=== PATIENT | female | born 1945 | race Caucasian/White ===

== ENCOUNTER → 2018-03-26 | Outpatient (CLI) | payer OTHER ==
[~2018-03-26] MED LIST: REGADENOSON 0.4 MG/5 ML SYRINGE ONE
== END | disposition home or self-care (01) ==
LOC: CFH 07:31
PROVIDERS: ATTEND Internal Medicine Cardiovascular Disease
DX: I25.89 Other forms of chronic ischemic heart disease (principal); I48.0 Paroxysmal atrial fibrillation; I10 Essential (primary) hypertension
CPT/HCPCS: 78452; 93017; A9502; J2785

== ENCOUNTER 2018-08-22 09:48 | Outpatient (CLI) | payer MEDICARE | END 2018-08-22 23:59 | disposition home or self-care (01) | LOC: CFH 09:48 | PROVIDERS: ATTEND Internal Medicine | DX: E04.2 Nontoxic multinodular goiter (principal) | CPT/HCPCS: 71250 ==

== ENCOUNTER → 2018-09-26 | Outpatient (CLI) | payer MEDICARE | END | disposition home or self-care (01) | LOC: CFH 16:01 | PROVIDERS: ATTEND Nurse Practitioner Family | DX: N39.0 Urinary tract infection, site not specified (principal) | CPT/HCPCS: 76770 ==

== ENCOUNTER 2019-08-01 08:58 | Outpatient (CLI) | payer MEDICARE | END 2019-08-01 23:59 | disposition home or self-care (01) | LOC: CFH 08:58 | DX: Z12.31 Encounter for screening mammogram for malignant neoplasm of breast (principal) | CPT/HCPCS: 77063; 77067 ==

== ENCOUNTER → 2019-09-18 | Outpatient (CLI) | payer MEDICARE | END | disposition home or self-care (01) | LOC: CFH 13:46 | PROVIDERS: ATTEND Pain Medicine Interventional Pain Medicine | DX: M51.16 Intervertebral disc disorders with radiculopathy, lumbar region (principal); M48.061 Spinal stenosis, lumbar region without neurogenic claudication | CPT/HCPCS: 72120 ==

== ENCOUNTER 2019-10-10 11:54 | Outpatient (CLI) | payer MEDICARE ==
[2019-10-10] MEDS ORDERED: MIDAZOLAM 1 MG/ML, 5ML ONE (12:50)
[2019-10-10] MEDS ORDERED: NALOXONE 1 MG/ML, 2ML ONE (12:50)
[2019-10-10] MEDS ORDERED: FENTANYL PF 100 MCG/2ML ONE (12:50)
[2019-10-10] MEDS ORDERED: FLUMAZENIL 0.1 MG/1 ML, 5ML ONE (12:50)
== END 2019-10-10 23:59 | disposition home or self-care (01) ==
LOC: RAD 11:54
PROVIDERS: ATTEND Pain Medicine Interventional Pain Medicine
DX: M51.16 Intervertebral disc disorders with radiculopathy, lumbar region (principal); M48.061 Spinal stenosis, lumbar region without neurogenic claudication
CPT/HCPCS: 72148; 99156; 99157; J2250; J3010; J2310

== ENCOUNTER 2020-03-06 20:00 | Emergency (ER) | payer MEDICARE ==
[~2020-03-06] VITALS: Ht 160 cm; Wt 89.0 kg
--- NOTE | 2020-03-06 21:14 | NUR ---
ERP AT BEDSIDE.
[2020-03-06] MEDS ORDERED: high blood pressure (21:26)
[2020-03-06] MEDS ORDERED: stomach med (21:26)
[2020-03-06] MEDS ORDERED: METF500T17 PO (21:26)
[2020-03-06 21:28] VITALS: BP 128/49
== END 2020-03-06 21:49 | disposition home or self-care (01) ==
LOC: ED 20:30
DX: S92.355A Nondisplaced fracture of fifth metatarsal bone, left foot, initial encounter for closed fracture (principal); E11.9 Type 2 diabetes mellitus without complications; I48.91 Unspecified atrial fibrillation; I10 Essential (primary) hypertension; W18.30XA Fall on same level, unspecified, initial encounter; Y93.89 Activity, other specified; Y92.009 Unspecified place in unspecified non-institutional (private) residence as the place of occurrence of the external cause; Y99.8 Other external cause status
CPT/HCPCS: 99284

== ENCOUNTER 2020-08-13 07:47 | Emergency (ER) | payer MEDICARE ==
[~2020-08-13 07:47] MED LIST changes: +ACID1TAB7 PO; +BUPR100T11 PO; +CHOL10003 PO; +CHOL239. PO; +DIPH1TAB6 PO; +FLEC50TA25 PO; +FOLI0.8T2 PO; +GABA300C PO; +HYDR-3276 PO; +LOSA50TA14 PO; +MAGN400T36 PO; +METF500T17 PO; +METH2.5T PO; +NITROFURANTOIN PO; +OMEP20CA20 PO; +ONDA-89 PO; +POTA8CAP20 PO; -REGADENOSON 0.4 MG/5 ML SYRINGE ONE; +RIVA20TA PO; +SIMV20TA19 PO; +SIMV40TA20 PO; +VITA100C10 PO; +high blood pressure; +stomach med; +victoza
--- NOTE | 2020-08-13 08:02 | NUR ---
PATIENT ARRIVES TO ER IN WHEELCHAIR AND STATES LAST NIGHT BEGAN HAVING DIARREA, VOMITING, HTN; PATIENT HAS A HISTORY OF DIABETES AND HTN
--- NOTE | 2020-08-13 08:29 | NUR ---
PATIENT TAKEN TO BATHROOM AND CLEAN CATCH URINE OBTAINED.
[2020-08-13] MEDS ORDERED: SODIUM CHLORIDE 0.9% 1,000ML IVBOLUS ONE ×2 (08:30→09:30)
[2020-08-13] MEDS ORDERED: ONDANSETRON 2MG/ML, 2ML IVPush ONE (08:30)
[2020-08-13] MEDS ORDERED: SODIUM CHLORIDE FLUSH 10ML SYR IVF ONE (08:30)
[2020-08-13] MEDS ORDERED: FAMOTIDINE 20 MG/2 ML IVPush ONE (08:30)
[2020-08-13] MEDS ORDERED: ONDANSETRON 2MG/ML, 2ML ONE (08:32)
[2020-08-13] MEDS ORDERED: FAMOTIDINE 20 MG/2 ML ONE (08:34)
--- NOTE | 2020-08-13 08:37 | NUR ---
patient left for xray
[2020-08-13 08:39] LABS: MICROSCOPIC AUTO
[2020-08-13 08:40] LABS: BASOPHILS % (AUTO) 1 % (0-1); EOSINOPHILS % (AUTO) 2 % (1-7); LYMPHOCYTES % (AUTO) 23 % (22-44); MEAN CORPUSCULAR HEMOGLOBIN 32.1 pg (27.0-34.8); MEAN CORPUSCULAR HGB CONC 33.8 g/dL (32.4-35.8); MEAN PLATELET VOLUME 7.2 fL (7.4-10.4); MONOCYTES % (AUTO) 12 % (2-9); NEUTROPHILS % (AUTO) 63 % (42-75); PLATELET COUNT 207 x10^3/uL (130-400); RED BLOOD COUNT 4.45 x10^6/uL (3.82-5.3)
[2020-08-13 08:41] LABS: MD NO
[2020-08-13 08:50] LABS: ALANINE AMINOTRANSFERASE 23 U/L (12-78); ALBUMIN 3.6 g/dL (3.4-5.0); ANION GAP 3 mmol/L (5-15); CALCIUM 9.2 mg/dL (8.5-10.1); CHLORIDE 104 mmol/L (98-107); CREATININE 1.15 mg/dL (0.55-1.02)
[2020-08-13 08:53] LABS: ALKALINE PHOSPHATASE 66 U/L (45-117); BILIRUBIN,TOTAL 0.5 mg/dL (0.2-1.0); TOTAL PROTEIN 7.1 g/dL (6.4-8.2)
[2020-08-13] MEDS ORDERED: METOCLOPRAMIDE 5 MG/ML, 2ML ONE (09:29)
[2020-08-13] MEDS ORDERED: METOCLOPRAMIDE 5 MG/ML, 2ML IVPush ONE (09:30)
[2020-08-13 10:22] VITALS: BP 166/95
--- NOTE | 2020-08-13 10:22 | NUR ---
PATIENT NOW ADDS THAT SHE HAS CHRONIC UTIS AND IS ON NITROFURITON FOR THIS CURRENTLY
== END 2020-08-13 10:47 | disposition home or self-care (01) ==
LOC: ED 10:12
DX: N30.00 Acute cystitis without hematuria (principal); R11.2 Nausea with vomiting, unspecified; R19.7 Diarrhea, unspecified; R42 Dizziness and giddiness; R10.9 Unspecified abdominal pain; I48.91 Unspecified atrial fibrillation; E11.9 Type 2 diabetes mellitus without complications; Z90.89 Acquired absence of other organs; Z90.49 Acquired absence of other specified parts of digestive tract; Z90.710 Acquired absence of both cervix and uterus
CPT/HCPCS: 74022; 80053; 81001; 82962; 83690; 85025; 87086; 93005; 96361; 96374; 96375; 99285; J2405; J2765; J7030

== ENCOUNTER → 2020-11-24 | Outpatient (CLI) | payer MEDICARE ==
[~2020-11-24] MED LIST changes: -FOLI0.8T2 PO; +FOLI0.8T5 PO
== END | disposition home or self-care (01) ==
LOC: CFH 11:36
DX: N64.4 Mastodynia (principal)
CPT/HCPCS: 76642; 77062; 77063; 77066; G0279